=== PATIENT | male | born 1970 | race Caucasian/White ===

== ENCOUNTER 2022-10-21 15:09 | Outpatient (CLI) | payer SELFPAY ==
[2022-10-21 14:31] LABS: Albumin* 4.6 g/dL (3.3-5.0); Chloride* 105 mmol/L (96-114); Sodium* 140 mmol/L (135-149)
[2022-10-21 14:32] LABS: Potassium* 4.6 mmol/L (3.6-5.1)
[2022-10-21 14:33] LABS: Carbon Dioxide* 28 mmol/L (20-32); Cholesterol* 201 mg/dL (90-199); Creatinine* 1.2 mg/dL (0.5-1.5); Estimated Glomerular Filt Rate 73 ml/min
[2022-10-21 14:34] LABS: Alanine Aminotransferase* 22 U/L (4-50); Alkaline Phosphatase* 52 U/L (40-150); Aspartate Amino Transferase* 32 U/L (12-35); Bilirubin Total* 0.7 mg/dL (0.1-1.5); Blood Urea Nitrogen* 18 mg/dL (7-30); Glucose* 93 mg/dL (60-115); Total Protein* 7.1 g/dL (6.0-8.3); Triglycerides* 121 mg/dL (40-149)
[2022-10-21 14:35] LABS: HDL Cholesterol* 74 mg/dL (>=40); LDL Cholesterol Calculated 103 mg/dL (<100)
== END 2022-10-21 15:10 | disposition home or self-care (01) ==
PROVIDERS: PCP Physician Assistant Medical; Visit Provider Physician Assistant Medical
DX: Z00.00 Encounter for general adult medical examination without abnormal findings (principal); E78.5 Hyperlipidemia, unspecified
CPT/HCPCS: 80053; 80061

== ENCOUNTER 2022-12-27 06:07 | Outpatient (CLI) | payer OTHER, SELFPAY | END 2022-12-27 06:08 | disposition home or self-care (01) | LOC: OP CLINIC 06:08 | PROVIDERS: PCP Physician Assistant Medical; Visit Provider Internal Medicine | DX: Z12.11 Encounter for screening for malignant neoplasm of colon (principal); K63.5 Polyp of colon; K57.30 Diverticulosis of large intestine without perforation or abscess without bleeding | CPT/HCPCS: 45380; 45385; 99153; J2250; J3010 ==

== ENCOUNTER 2024-01-01 08:05 | Outpatient (CLI) | payer OTHER, SELFPAY | END 2024-01-01 08:06 | disposition home or self-care (01) | LOC: NFLDREF 01-05 08:18 | PROVIDERS: PCP Physician Assistant Medical; Referring Provider Physician Assistant Medical; Visit Provider Physician Assistant Medical | DX: E78.2 Mixed hyperlipidemia (principal); Z12.5 Encounter for screening for malignant neoplasm of prostate; Z13.29 Encounter for screening for other suspected endocrine disorder; Z79.899 Other long term (current) drug therapy | CPT/HCPCS: 80053; 80061; 84443; G0103 ==

== ENCOUNTER 2025-01-31 07:34 | Outpatient (CLI) | payer OTHER, SELFPAY | END 2025-01-31 07:35 | disposition home or self-care (01) | LOC: NFLDREF 02-09 00:55 | PROVIDERS: PCP Physician Assistant Medical; Referring Provider Physician Assistant Medical; Visit Provider Physician Assistant Medical | DX: Z00.01 Encounter for general adult medical examination with abnormal findings (principal); E78.5 Hyperlipidemia, unspecified; G25.0 Essential tremor; Z12.5 Encounter for screening for malignant neoplasm of prostate | CPT/HCPCS: 80053; 80061; 84443; G0103 ==